=== PATIENT | male | born 1940 | race Caucasian/White ===

== ENCOUNTER → 2017-05-18 | Outpatient (CLI) | payer MEDICARE, BC | END | disposition home or self-care (01) | LOC: CFH 09:39 | PROVIDERS: ATTEND Internal Medicine Cardiovascular Disease | DX: I08.0 Rheumatic disorders of both mitral and aortic valves (principal); I77.810 Thoracic aortic ectasia; I11.9 Hypertensive heart disease without heart failure; Z95.1 Presence of aortocoronary bypass graft | CPT/HCPCS: 93306 ==

== ENCOUNTER 2020-07-23 11:24 | Emergency (ER) | payer MEDICARE, BC ==
[~2020-07-23] VITALS: Ht 172.7 cm; Wt 102.5 kg
--- NOTE | 2020-07-23 12:14 | NUR ---
URINARY RETENTION X 2 DAYS. HX OF PROSTATE CA BLADDER SCAN OF 750ML, 14F COUDE PLACED. STERILE SAMPLE OBTAINED-SENT TO LAB
[2020-07-23 12:19] LABS: MICROSCOPIC NOT IND
--- NOTE | 2020-07-23 12:20 | NUR ---
lab at bedside
[2020-07-23 12:32] LABS: BASOPHILS % (AUTO) 1 % (0-1); EOSINOPHILS % (AUTO) 1 % (1-7); LYMPHOCYTES % (AUTO) 19 % (22-44); MEAN CORPUSCULAR HGB CONC 34.3 g/dL (33.2-36.2); MEAN PLATELET VOLUME 8.1 fL (7.4-10.4); MONOCYTES % (AUTO) 6 % (2-9); NEUTROPHILS % (AUTO) 74 % (42-75); PLATELET COUNT 215 x10^3/uL (130-400); RED BLOOD COUNT 4.41 x10^6/uL (4.38-5.82); RED CELL DISTRIBUTION WIDTH 15.1 % (9.4-14.8)
[2020-07-23 12:41] LABS: ALBUMIN 3.8 g/dL (3.4-5.0); ANION GAP 3 mmol/L (5-15); CALCIUM 9.5 mg/dL (8.5-10.1); CHLORIDE 106 mmol/L (98-107)
[2020-07-23 12:45] LABS: ALANINE AMINOTRANSFERASE 25 U/L (12-78); ALKALINE PHOSPHATASE 72 U/L (45-117); BILIRUBIN,TOTAL 0.6 mg/dL (0.2-1.0); CREATININE 0.98 mg/dL (0.7-1.3); TOTAL PROTEIN 7.5 g/dL (6.4-8.2)
[2020-07-23] MEDS ORDERED: SODIUM CHLORIDE FLUSH 10ML SYR IVF ONE (13:00)
--- NOTE | 2020-07-23 13:11 | NUR ---
CT WAITING FOR IV ACCESS
[2020-07-23 13:18] LABS: MD SCAN
[2020-07-23] MEDS ORDERED: ATOR-2 PO (13:29)
[2020-07-23] MEDS ORDERED: METOPROLOL PO (13:29)
[2020-07-23] MEDS ORDERED: CLOP75TA PO (13:29)
[2020-07-23] MEDS ORDERED: FOLI0.4T2 PO (13:29)
[2020-07-23] MEDS ORDERED: ASPI-515 PO (13:29)
[2020-07-23] MEDS ORDERED: CITA20TA6 PO (13:29)
[2020-07-23] MEDS ORDERED: MECO10005 PO (13:29)
[2020-07-23] MEDS ORDERED: DIME25TA PO (13:29)
[2020-07-23] MEDS ORDERED: ALBU90AE2 INH (13:29)
[2020-07-23] MEDS ORDERED: OMNIPAQUE 350 MG/ML, 100ML BOTTLE ONE (13:50)
[2020-07-23 15:11] VITALS: BP 129/80
== END 2020-07-23 15:13 | disposition home or self-care (01) ==
LOC: ED 12:45
DX: R33.9 Retention of urine, unspecified (principal)
CPT/HCPCS: 36415; 51702; 72193; 80053; 81003; 85025; 99285; Q9967

== ENCOUNTER 2020-07-24 10:26 | Emergency (ER) | payer MEDICARE, BC ==
[~2020-07-24] VITALS: Ht 167.6 cm; Wt 100.3 kg
[~2020-07-24 10:26] MED LIST: ALBU90AE2 INH; ASPI-515 PO; ATOR-2 PO; CITA20TA6 PO; CLOP75TA PO; DIME25TA PO; FOLI0.4T2 PO; MECO10005 PO; METOPROLOL PO
--- NOTE | 2020-07-24 10:37 | NUR ---
KIAN KHOURY AT BS FOR EXAM. PT ACCOMPANIED BY SPOUSE. PT & SPOUSE REPORT: FOELY CATH PLACED YESTERDAY AT [facility] ED. SPOUSE STATES CATHETER RETAINER KEPT POPPING OPEN YESTERDAY, SPOUSE KEPT CLOSING DEVICE; "LEAKING FROM UP ABOVE"; PANTS WERE WET IN GROIN AREA. C/O BURNING AT END OF PENIS. DENIES PUBIC AREA PAIN.
--- NOTE | 2020-07-24 10:50 | NUR ---
CATHETER SYSTEM ASSESSED. LEG BAG STRAP OCCLUDING DRAINAGE, TUBING NOT FIRMLY CONNECTED TO CATHETER END, RESISTANCE TO LIGHT PULL ON CATHETER. CATHETER DRAINING SLOWLY. PT DENIES PAIN AND BURNING AT THIS TIME. WILL REPLACE LEG BAG TO ASSESS DRAINING STATUS.
--- NOTE | 2020-07-24 11:55 | NUR ---
LEG BAG CHANGED. SCANT URINE OUTPUT; WATER PROVIDED. PT & SPOUSE EDUCATED ON MCGUIRE DRAINAGE SYSTEM AND CARE. PENG UPDATED ON PT STATUS.
--- NOTE | 2020-07-24 12:15 | NUR ---
MCGUIRE FLUSHED W/ 60ML NS; CLEAR YELLOW URINE RETURNED. LEG BAG TUBING REATTACHED TO MCGUIRE. CATHER TUBING BETACNOURT REPLACED. PT & SPOUSE EDUCATED ON BETANCOURT USE; UNDRSTANDING VERBALIZED.
[2020-07-24 12:43] VITALS: BP 153/78
== END 2020-07-24 13:04 | disposition home or self-care (01) ==
LOC: ED 11:13
DX: T83.038A Leakage of other urinary catheter, initial encounter (principal); I10 Essential (primary) hypertension; Z85.46 Personal history of malignant neoplasm of prostate
CPT/HCPCS: 51700; 99284

== ENCOUNTER 2020-07-24 17:41 | Emergency (ER) | payer MEDICARE, BC ==
[~2020-07-24] VITALS: Ht 172.7 cm; Wt 101.1 kg
[2020-07-24 18:07] VITALS: BP 177/92
--- NOTE | 2020-07-24 19:41 | NUR ---
NOT IN LOBBY WHEN CALLED FOR ROOM.
== END 2020-07-24 20:48 | disposition left against medical advice (07) ==
LOC: ED 20:42
DX: T83.031A Leakage of indwelling urethral catheter, initial encounter (principal)
CPT/HCPCS: 99281

== ENCOUNTER 2020-07-25 12:57 | Emergency (ER) | payer MEDICARE, BC ==
[~2020-07-25] VITALS: Ht 172.7 cm; Wt 100.0 kg
[2020-07-25 12:59] VITALS: BP 114/59
[2020-07-25] MEDS ORDERED: LIDOCAINE 2% VISCOUS 15 ML UDC ONE (13:22)
[2020-07-25] MEDS ORDERED: LIDOCAINE 2% VISCOUS 15 ML UDC MM ONE (13:30)
== END 2020-07-25 13:45 | disposition home or self-care (01) ==
LOC: ED 13:18
DX: T83.098A Other mechanical complication of other urinary catheter, initial encounter (principal); I10 Essential (primary) hypertension; Z85.46 Personal history of malignant neoplasm of prostate
CPT/HCPCS: 99282

== ENCOUNTER 2020-07-26 20:19 | Emergency (ER) | payer MEDICARE, BC ==
[~2020-07-26] VITALS: Ht 172.7 cm; Wt 101.0 kg
--- NOTE | 2020-07-26 20:58 | NUR ---
PT. TO ED WITH C/O URINE LEAKING FROM URTHREA AROUND CATHETER. PER AT BS PT. SEEEN FOR SAME X 3. PT. MCGUIRE APPEARS INTACT AND PER FOELY BAG WAS EMPTIED 2 HOURS AGO. MINIMAL URINE OUTPUT NOTED. PT. HAS HX OF PROSTATE CA AND TAKES FLOMAX. PER PT. HAVING COMPLICATIONS WITH URINATION SINCE February WHEN HE HAD BACK SURGERY. AWAITING PROVIDER EVAL. PT. VALE ANY PAIN.
--- NOTE | 2020-07-26 21:17 | NUR ---
DR. MCLAUGHLIN WAS IN TO [facility] PT. AND DISCUSS POC.
--- NOTE | 2020-07-26 21:50 | NUR ---
14F MCGUIRE REMOVED. 16F MCGUIRE PLACED PER ORDER. PT. TOLERATED WELL. IMMEDIATE RETURN OF 150ML OF CLEAR YELLOW URINE WITH A FEW SPECS OF BLOOD NOTED. SMAPLE COLLECTED AND SENT TO LAB. PT. REPORTS FEELING OF RELIEF WITH NEW CATH PLACEMENT. REMAINS AT BS FOR SUPPORT.
[2020-07-26 22:00] LABS: MICROSCOPIC AUTO
[2020-07-26 22:38] VITALS: BP 145/83
--- NOTE | 2020-07-26 22:38 | NUR ---
NEW LEG BAG/DRAINAGE BAG FOR MCGUIRE PROVIDED TO PT. AND PT. VERBALIZED UNDERSTANDING OF ALL MCGUIRE CARE INSTRUCTIONS.
== END 2020-07-26 22:55 | disposition home or self-care (01) ==
LOC: ED 21:24
DX: N30.01 Acute cystitis with hematuria (principal); N40.1 Benign prostatic hyperplasia with lower urinary tract symptoms; R33.8 Other retention of urine; I10 Essential (primary) hypertension; Z85.46 Personal history of malignant neoplasm of prostate
CPT/HCPCS: 51702; 81001; 87086; 99284; C1726

== ENCOUNTER 2020-12-04 10:22 | Inpatient (IN) | payer MEDICARE, BC ==
[~2020-12-04] VITALS: Ht 172.7 cm; Wt 94.5 kg
[~2020-12-04 10:22] MED LIST changes: -ASPI-515 PO; +ASPI-963 PO; -FOLI0.4T2 PO; +FOLI0.4T5 PO
[2020-12-04] MEDS ORDERED: METO25TA35 PO (10:38)
[2020-12-04] MEDS ORDERED: TAMS-11 PO (10:38)
[2020-12-04] MEDS ORDERED: ONDANSETRON 2MG/ML, 2ML IVPush ONE (11:30)
[2020-12-04] MEDS ORDERED: SODIUM CHLORIDE FLUSH 10ML SYR IVF ONE (11:30)
[2020-12-04] MEDS ORDERED: FAMOTIDINE 20 MG/2 ML IVPush ONE (11:30)
[2020-12-04] MEDS ORDERED: SODIUM CHLORIDE 0.9% 1,000ML IVBOLUS ONE (11:30)
[2020-12-04] MEDS ORDERED: ONDANSETRON 2MG/ML, 2ML ONE (11:31)
[2020-12-04] MEDS ORDERED: FAMOTIDINE 20 MG/2 ML ONE (11:31)
[2020-12-04 12:14] LABS: BASOPHILS % (AUTO) 0 % (0-1); EOSINOPHILS % (AUTO) 0 % (1-7); LYMPHOCYTES % (AUTO) 15 % (22-44); MEAN CORPUSCULAR HEMOGLOBIN 32.8 pg (27.5-34.5); MEAN CORPUSCULAR HGB CONC 34.1 g/dL (33.2-36.2); MONOCYTES % (AUTO) 5 % (2-9); NEUTROPHILS % (AUTO) 80 % (42-75); PLATELET COUNT 245 x10^3/uL (130-400); RED BLOOD COUNT 4.88 x10^6/uL (4.38-5.82); RED CELL DISTRIBUTION WIDTH 14.9 % (9.4-14.8)
[2020-12-04 12:17] LABS: MD NO
[2020-12-04 12:24] LABS: ALANINE AMINOTRANSFERASE 22 U/L (12-78); ALBUMIN 4.3 g/dL (3.4-5.0); ANION GAP 4 mmol/L (5-15); CALCIUM 9.9 mg/dL (8.5-10.1); CHLORIDE 104 mmol/L (98-107); CREATININE 1.04 mg/dL (0.7-1.3)
[2020-12-04 12:27] LABS: ALKALINE PHOSPHATASE 71 U/L (45-117); BILIRUBIN,TOTAL 0.7 mg/dL (0.2-1.0); TOTAL PROTEIN 8.4 g/dL (6.4-8.2)
--- NOTE | 2020-12-04 14:05 | NUR ---
BREAK RN: PT LAYING ON GURNEY AWAKE & CALM, C/O PAIN- DR HIGGINS AWARE, COMFORT MEASURES PROVIDED, AT BS, CALL LIGHT WITHIN REACH.
[2020-12-04] MEDS ORDERED: DICYCLOMINE 10 MG/ML, 2ML ONE (14:13)
[2020-12-04] MEDS ORDERED: DICYCLOMINE 10 MG/ML, 2ML IM ONE (14:30)
--- NOTE | 2020-12-04 14:52 | NUR ---
PT OFF THE FLOOR TO CT.
[2020-12-04] MEDS ORDERED: METOCLOPRAMIDE 5 MG/ML, 2ML IVPush ONE (15:00)
[2020-12-04] MEDS ORDERED: OMNIPAQUE 350 MG/ML, 100ML BOTTLE ONE (15:04)
--- NOTE | 2020-12-04 15:04 | NUR ---
PHONE REPORT TO THA BACA
[2020-12-04] MEDS ORDERED: GUAIFENESIN/COD200MG-20MG/10ML LIQUID PO PRN (16:00)
[2020-12-04] MEDS ORDERED: TRAZODONE 50MG TABLET PO PRN (16:00)
[2020-12-04] MEDS ORDERED: ENALAPRILAT 1.25 MG/ML, 2ML IVPush PRN (16:00)
[2020-12-04] MEDS ORDERED: LACTATED RINGERS 1,000 ML IV SCH (16:00)
[2020-12-04] MEDS ORDERED: ENOXAPARIN 40 MG/0.4 ML SQ SCH (16:00)
[2020-12-04] MEDS ORDERED: HYDROcodone/APAP 5/325 TABLET PO PRN (16:00)
[2020-12-04] MEDS ORDERED: DOCUSATE 100 MG CAPSULE PO PRN (16:00)
[2020-12-04] MEDS ORDERED: METHOCARBAMOL 500 MG TABLET PO PRN (16:00)
[2020-12-04] MEDS ORDERED: ACETAMINOPHEN 325 MG TABLET PO PRN (16:00)
[2020-12-04] MEDS ORDERED: morphine SULFATE 10 MG/ML, 1ML IVPush PRN (16:00)
[2020-12-04] MEDS ORDERED: ONDANSETRON 2MG/ML, 2ML IVPush PRN (16:00)
[2020-12-04] MEDS: METOCLOPRAMIDE 5 MG/ML, 2ML IVPush SCH ×2 (17:16→22:24)
[2020-12-04 18:12] LABS: MICROSCOPIC AUTO
[2020-12-04 20:49] VITALS: BP 149/83
[2020-12-04] MEDS ORDERED: METOPROLOL SUCCINATE 50 MG TAB.ER.24H PO SCH (21:00)
[2020-12-04] MEDS ORDERED: ATORVASTATIN 80 MG TABLET PO SCH (21:00)
[2020-12-04] MEDS ORDERED: ATORVASTATIN 20 MG TABLET PO SCH (21:00)
[2020-12-04 21:24] VITALS: BP 141/82
[2020-12-04] MEDS: FAMOTIDINE 20 MG/2 ML IVPush SCH (21:33)
[2020-12-05 00:51] VITALS: BP 135/81
[2020-12-05] MEDS: METOCLOPRAMIDE 5 MG/ML, 2ML IVPush SCH ×2 (04:31→09:53)
[2020-12-05 05:17] LABS: BASOPHILS % (AUTO) 0 % (0-1); EOSINOPHILS % (AUTO) 1 % (1-7); LYMPHOCYTES % (AUTO) 34 % (22-44); MEAN CORPUSCULAR HEMOGLOBIN 32.2 pg (27.5-34.5); MEAN CORPUSCULAR HGB CONC 33.5 g/dL (33.2-36.2); MEAN PLATELET VOLUME 7.8 fL (7.4-10.4); MONOCYTES % (AUTO) 9 % (2-9); NEUTROPHILS % (AUTO) 56 % (42-75); PLATELET COUNT 231 x10^3/uL (130-400); RED BLOOD COUNT 4.39 x10^6/uL (4.38-5.82)
[2020-12-05 05:26] LABS: CHLORIDE 109 mmol/L (98-107); MD NO
[2020-12-05 05:31] LABS: ANION GAP 3 mmol/L (5-15); CALCIUM 8.9 mg/dL (8.5-10.1); CREATININE 0.83 mg/dL (0.7-1.3)
[2020-12-05 07:16] VITALS: BP 129/71
[2020-12-05] MEDS ORDERED: TAMSULOSIN 0.4 MG CAP.ER.24H PO SCH (09:00)
[2020-12-05] MEDS ORDERED: FOLIC ACID 1 MG TABLET PO SCH (09:00)
[2020-12-05] MEDS ORDERED: AMLODIPINE 5 MG TABLET PO SCH (09:00)
[2020-12-05] MEDS ORDERED: FINASTERIDE 5 MG TABLET PO SCH ×2 (09:00)
[2020-12-05] MEDS ORDERED: ASPIRIN 81 MG TABLET EC PO SCH (09:00)
[2020-12-05] MEDS ORDERED: CYANOCOBALAMIN 1,000 MCG TABLET PO SCH (09:00)
[2020-12-05 09:34] VITALS: BP 146/84
[2020-12-05] MEDS: FAMOTIDINE 20 MG/2 ML IVPush SCH (09:39)
[2020-12-05 12:34] VITALS: BP 130/62
[2020-12-05] MEDS ORDERED: LACTATED RINGERS 1,000 ML IV SCH (16:00)
[2020-12-06] MEDS ORDERED: HYDR-3342 PO (12:29)
[2020-12-06] MEDS ORDERED: AMLO-211 PO (12:29)
[2020-12-06] MEDS ORDERED: FINA1TAB16 PO (12:29)
== END 2020-12-05 15:05 | disposition home or self-care (01) | DRG 392 ==
LOC: ED 14:12 → 4NE 14:39 → DCLOUNGE 12-05 14:50
PROVIDERS: ADMIT Internal Medicine; ATTEND Internal Medicine
DX: K52.9 Noninfective gastroenteritis and colitis, unspecified (principal); N17.9 Acute kidney failure, unspecified; E86.0 Dehydration; I10 Essential (primary) hypertension; E78.5 Hyperlipidemia, unspecified; K44.9 Diaphragmatic hernia without obstruction or gangrene; E78.00 Pure hypercholesterolemia, unspecified; N40.0 Benign prostatic hyperplasia without lower urinary tract symptoms; I25.10 Atherosclerotic heart disease of native coronary artery without angina pectoris; Z95.1 Presence of aortocoronary bypass graft; Z85.46 Personal history of malignant neoplasm of prostate; Z82.49 Family history of ischemic heart disease and other diseases of the circulatory system; Z79.899 Other long term (current) drug therapy
CPT/HCPCS: 36415; 74177; 80048; 80053; 81001; 83690; 83735; 84100; 85025; 93005; 96361; 96372; 96374; 96375; G0378; J1650; J2405; Q9967; J0500; J2765; J7030; J7120

== ENCOUNTER 2020-12-06 11:55 | Emergency (ER) | payer MEDICARE, BC ==
[~2020-12-06] VITALS: Ht 172.7 cm; Wt 95.2 kg
[~2020-12-06 11:55] MED LIST changes: +METO25TA35 PO; +TAMS-11 PO
--- NOTE | 2020-12-06 12:23 | NUR ---
PT D/C 5/2, RTD TODAY FOR CONTINUED LLQ ABD PAIN AND UNABLE TO EAT 2/2 PAIN INCREASES WITH FOOD. ER ISRAEL LANGSTON AT BEDSIDE, PT ASSESSMENT AND POC REVIEWED AND QUESTIONS ANSWERED. CALL LIGHT W/I REACH
[2020-12-06] MEDS ORDERED: AMLO-211 PO (12:29)
[2020-12-06] MEDS ORDERED: FINA1TAB16 PO (12:29)
[2020-12-06] MEDS ORDERED: HYDR-3342 PO (12:29)
--- NOTE | 2020-12-06 12:40 | NUR ---
PT AMB TO BATHROOM, UPRIGHT STEADY GAIT.
--- NOTE | 2020-12-06 12:44 | NUR ---
PT RTD TO ROOM W/O INCIDENT. URINE COLLECTED AND SENT TO LAB. DAMAGED FREIGHT INSPECTOR AT BEDSIDE. CALL LIGHT W/I REACH
[2020-12-06 13:09] LABS: ALANINE AMINOTRANSFERASE 23 U/L (12-78); ALBUMIN 3.9 g/dL (3.4-5.0); ANION GAP 6 mmol/L (5-15); CALCIUM 9.4 mg/dL (8.5-10.1); CHLORIDE 107 mmol/L (98-107); CREATININE 0.94 mg/dL (0.7-1.3)
[2020-12-06 13:12] LABS: MICROSCOPIC NOT IND
[2020-12-06 13:12] LABS: ALKALINE PHOSPHATASE 69 U/L (45-117); BILIRUBIN,TOTAL 0.7 mg/dL (0.2-1.0); TOTAL PROTEIN 7.6 g/dL (6.4-8.2)
[2020-12-06 13:14] LABS: BASOPHILS % (AUTO) 1 % (0-1); EOSINOPHILS % (AUTO) 1 % (1-7); LYMPHOCYTES % (AUTO) 29 % (22-44); MEAN CORPUSCULAR HEMOGLOBIN 32.4 pg (27.5-34.5); MEAN CORPUSCULAR HGB CONC 34.2 g/dL (33.2-36.2); MONOCYTES % (AUTO) 9 % (2-9); NEUTROPHILS % (AUTO) 61 % (42-75); PLATELET COUNT 228 x10^3/uL (130-400); RED BLOOD COUNT 4.84 x10^6/uL (4.38-5.82); RED CELL DISTRIBUTION WIDTH 14.8 % (9.4-14.8)
--- NOTE | 2020-12-06 14:15 | NUR ---
DR ODONNELL AT BEDSIDE. TEST RESULTS REV. ADDITIONAL ORDER REC'D
[2020-12-06 14:28] VITALS: BP 126/78
--- NOTE | 2020-12-06 15:17 | NUR ---
Patient/Caregiver given discharge instructions and they have confirmed that they understand the instructions. Patient ambulatory with steady gait.
== END 2020-12-06 15:32 | disposition home or self-care (01) ==
LOC: ED 15:10
DX: R10.84 Generalized abdominal pain (principal); K59.00 Constipation, unspecified; I10 Essential (primary) hypertension; E78.00 Pure hypercholesterolemia, unspecified; Z85.46 Personal history of malignant neoplasm of prostate
CPT/HCPCS: 36415; 74021; 80053; 81003; 83690; 85025; 99284

== ENCOUNTER 2021-04-20 10:52 | Outpatient (CLI) | payer MEDICARE, BC ==
[~2021-04-20 10:52] MED LIST changes: +AMLO-211 PO; +FINA1TAB16 PO; +HYDR-3342 PO
[2021-04-20] MEDS ORDERED: SINCALIDE (KINEVAC) 5 MCG ONE (12:25)
== END 2021-04-20 23:59 | disposition home or self-care (01) ==
LOC: RAD 10:52
PROVIDERS: ATTEND Registered Nurse
DX: K82.8 Other specified diseases of gallbladder (principal); K21.9 Gastro-esophageal reflux disease without esophagitis; R19.5 Other fecal abnormalities; R63.4 Abnormal weight loss; R10.13 Epigastric pain; R19.7 Diarrhea, unspecified; Z80.0 Family history of malignant neoplasm of digestive organs
CPT/HCPCS: 78227; A9537; J2805